=== PATIENT | female | born 1960 | race American Indian/Alaskan Native ===

== ENCOUNTER → 2017-05-07 | Outpatient (CLI) | payer BC, OTHER ==
[~2017-05-07] MED LIST: ASPI-624 PO; LEVO75TA6 PO; METO-272 PO; SULF1TAB23 PO
--- NOTE | 2017-05-10 19:37 | Diagnostic Imaging Report ---
EXAMINATION: Digital Mammogram bilateral screening with tomosynthesis. INDICATION: Screening. COMPARISON: This study was compared to the prior exams of 05/22/2016, 05/17/2015, and 05/11/2014. At this time, there are no current complaints. The current study was also evaluated with a Computer Aided Detection (CAD) system. FINDINGS: The fibroglandular tissue in both breasts is heterogeneously dense. This does limit the sensitivity of this exam. Overall, there does not appear to have been any significant change when compared to the prior study. No primary or secondary sign of malignancy is noted. 3D tomographic images fail to show any sign of malignancy. IMPRESSION: There is no radiographic evidence for malignancy. ACR BI-RADS Category 1: Negative. Result letter will be mailed to the patient. Note: At least 10% of breast cancer is not imaged by mammography. Dictated by: Dictated on workstation # [id number]
== END ==
LOC: RAD 13:26
PROVIDERS: ATTEND Internal Medicine
DX: Z12.31 Encounter for screening mammogram for malignant neoplasm of breast (principal)
CPT/HCPCS: 77067

== ENCOUNTER 2018-05-10 12:59 | Day surgery (SDC) | payer BC ==
[~2018-05-10] VITALS: Ht 167.6 cm; Wt 91.3 kg
[~2018-05-10 12:59] MED LIST changes: -ACHD5005 PO; -AMLO5TAB2 PO
--- OUTSIDE RECORDS SUMMARY | 2018-05-10 13:01 | XMS REPORT | Clinical Summary ---
Author Author User, K[employer] Organization Crystal Henson DO, FACP Address Unknown Phone Allergies, Adverse Reactions, Alerts Allergy Name Reaction Description Start Date Severity Status Provider Allergies Unknown Conditions or Problems Problem Name Problem Code Onset Date Status Entry Date Provider Comment Standard Description Annotate WELL WOMAN V70.0 Active Crystal Henson Routine general medical examination at a [facility] care facility HYPERTENSION 401.1 Active Crystal Henson Benign essential hypertension HYPOTHYROIDISM, PRIMARY 244.9 Active Crystal Henson Unspecified hypothyroidism WEIGHT GAIN, ABNORMAL 783.1 Active Crystal Henson Abnormal weight gain Medication List Medication Instructions Start Date Stop Date Generic Name NDC Status Provider Patient Instruction BETAMETHASONE DIPROPIONATE 0.05 % CREA as directed BID BETAMETHASONE DIPROPIONATE 47859709364 Active Delores Conley METOPROLOL SUCCINATE ER 25 MG [id number] 1 PO daily METOPROLOL SUCCINATE 61992563511 Active Crystal Henson ASPIRIN 81 MG TAB 1 PO daily ASPIRIN 87853682177 Active Crystal Henson LEVOTHYROXINE SODIUM 75 MCG TABS 1 PO daily LEVOTHYROXINE SODIUM 55373093543 Active Crystal Henson Vital Signs Date Name Value Unit Range Description blood pressure, diastolic - 8462-4 90 mm[Hg] BP ivey blood pressure, systolic - 8480-6 166 mm[Hg] BP sys height E&M - 8302-2 66 [in_us] Bdy height pulse rate E&M - 8867-4 72 /min Heart rate respiratory rate E&M - 9279-1 14 /min Resp rate temperature E&M 98.6 [degF] Body temperature weight E& - 3141-9 210 [lb_av] Weight Measured Diagnostic Results Date Name Value Unit Range Description Office Visit: First Visit - Chemistry Estimated Glomerular Filtration Rate (calc) 117 mL/min/1.73m2 glucose, plasma fasting 109 mg/dL albumin, serum 4.6 g/dL alkaline phosphatase, serum 53 U/L urea nitrogen, blood 13 mg/dL calcium, serum 9.3 mg/dL chloride, serum 103 mmol/L cholesterol, serum 235 mg/dL cholesterol/HDL ratio, serum, percent 4.4 anion gap, serum 11 sodium, serum 136 mmol/L triglyceride, serum, fasting 169 mg/dL bilirubin, serum, total 0.5 mg/dL alanine aminotransferase (SGPT), serum 22 U/L aspartate aminotransferase (SGOT), serum 14 U/L protein, total, serum 7.2 g/dL potassium, serum 4.6 mmol/L LDL cholesterol, serum 147 mg/dL thyroid stimulating hormone, serum 1.54 u[iU]/mL hemoglobin A1C, blood, as % of total hemoglobin 5.5 % HDL cholesterol, serum 54.0 mg/dL thyroxine, serum, free 0.91 ng/dL ferritin, serum 54.8 ng/mL creatinine, serum 0.6 mg/dL carbon dioxide, venous blood 27.0 mmol/L Office Visit: First Visit - Hematology red blood cell distribution width 14.2 % hemoglobin, blood 15.0 g/dL platelet count 348 10*3/mm3 erythrocyte (RBC) count 4.84 10*6/mm3 leukocyte count, blood 6.6 10*3/mm3 mean corpuscular volume, RBC 100 fL hematocrit, blood 49 % Procedures Code Procedure Name Date Entry Date Standard Description CPT-43778 Fermin Hastings, ([id number]) 16:29:41 ART CRITIC
--- OUTSIDE RECORDS SUMMARY | 2018-05-10 13:01 | XMS REPORT | Clinical Summary ---
Author Author User, Sravnikupi Organization Crystal Henson DO, CORNELP Address Unknown Phone Allergies, Adverse Reactions, Alerts Allergy Name Reaction Description Start Date Severity Status Provider Allergies Unknown Conditions or Problems Problem Name Problem Code Onset Date Status Entry Date Provider Comment Standard Description Annotate WELL WOMAN V70.0 Active Crystal Henson Routine general medical examination at a [facility] care facility HYPERTENSION 401.1 Active Crystal Henson Benign essential hypertension HYPOTHYROIDISM, PRIMARY 244.9 Active Crystal Henson Unspecified hypothyroidism WEIGHT GAIN, ABNORMAL 783.1 Active Crystal Henson Abnormal weight gain BREAST MASS, RIGHT 611.72 Active Crystal Henson Lump or mass in breast Medication List Medication Instructions Start Date Stop Date Generic Name NDC Status Provider Patient Instruction BETAMETHASONE DIPROPIONATE 0.05 % CREA as directed BID BETAMETHASONE DIPROPIONATE 73992627458 Active Delores Conley METOPROLOL SUCCINATE ER 25 MG [id number] 1 PO daily METOPROLOL SUCCINATE 17658814207 Active Olga Lee ASPIRIN 81 MG TAB 1 PO daily ASPIRIN 04444242261 Active Olga Lee LEVOTHYROXINE SODIUM 75 MCG TABS 1 PO daily LEVOTHYROXINE SODIUM 55713051042 Active Olga Lee Vital Signs Date Name Value Unit Range Description blood pressure, diastolic - 8462-4 70 mm[Hg] BP ivey blood pressure, systolic - 8480-6 155 mm[Hg] BP sys pulse rate E&M - 8867-4 75 /min Heart rate respiratory rate E&M - 9279-1 14 /min Resp rate weight E&M - 3141-9 209 [lb_av] Weight Measured blood pressure, diastolic - 8462-4 90 mm[Hg] BP ivey blood pressure, systolic - 8480-6 166 mm[Hg] BP sys height E&M - 8302-2 66 [in_us] Bdy height pulse rate E&M - 8867-4 72 /min Heart rate respiratory rate E&M - 9279-1 14 /min Resp rate temperature E&M 98.6 [degF] Body temperature weight E&M - 3141-9 210 [lb_av] Weight Measured Diagnostic Results Date Name Value Unit Range Description Office Visit: First Visit - Chemistry chloride, serum 103 mmol/L sodium, serum 136 mmol/L cholesterol, serum 235 mg/dL carbon dioxide, venous blood 27.0 mmol/L creatinine, serum 0.6 mg/dL Estimated Glomerular Filtration Rate (calc) 117 mL/min/1.73m2 ferritin, serum 54.8 ng/mL glucose, plasma fasting 109 mg/dL cholesterol/HDL ratio, serum, percent 4.4 alanine aminotransferase (SGPT), serum 22 U/L aspartate aminotransferase (SGOT), serum 14 U/L protein, total, serum 7.2 g/dL potassium, serum 4.6 mmol/L thyroid stimulating hormone, serum 1.54 u[iU]/mL triglyceride, serum, fasting 169 mg/dL HDL cholesterol, serum 54.0 mg/dL hemoglobin A1C, blood, as % of total hemoglobin 5.5 % LDL cholesterol, serum 147 mg/dL albumin, serum 4.6 g/dL alkaline phosphatase, serum 53 U/L anion gap, serum 11 bilirubin, serum, total 0.5 mg/dL urea nitrogen, blood 13 mg/dL calcium, serum 9.3 mg/dL thyroxine, serum, free 0.91 ng/dL Office Visit: First Visit - Hematology mean corpuscular volume, RBC 100 fL red blood cell distribution width 14.2 % erythrocyte (RBC) count 4.84 10*6/mm3 leukocyte count, blood 6.6 10*3/mm3 hemoglobin, blood 15.0 g/dL platelet count 348 10*3/mm3 hematocrit, blood 49 % Encounters Code Encounter Date Provider Facility CPT-83668 Ofc Vst, Est Level III 16:10:15 CDT Crystal Henson DO, FACP Procedures Code Procedure Name Date Entry Date Standard Description CPT-51633 Preventive, New, (40-64) 16:29:41 RESERVATIONS MANAGER
--- OUTSIDE RECORDS SUMMARY | 2018-05-10 13:02 | XMS REPORT | Continuity of Care Document ---
Author Author [facility] Address Unknown Phone Unavailable Allergies Active Description Code Type Severity Reaction Onset Reported/Identified Relationship to Patient Clinical Status Yes No Known Drug Allergies [id number] Drug Allergy Unknown N/A 12/14/2013 Medications There is no data. Problems Date Dx Coded Attending Type Code Diagnosis Diagnosed By 01/03/2013 388.30 TINNITUS UNSPECIFIED 01/03/2013 461.9 SINUSITIS ACUTE 01/03/2013 388.30 TINNITUS UNSPECIFIED 01/03/2013 461.9 SINUSITIS ACUTE 01/03/2013 EL HOSKINS DO 388.30 TINNITUS UNSPECIFIED 01/03/2013 EL HOSKINS DO 461.9 SINUSITIS ACUTE 01/16/2013 380.4 CERUMEN IMPACTION 01/16/2013 EL HOSKINS DO 380.4 CERUMEN IMPACTION 12/14/2013 ABIODUN JAIMES, JANIA Mcguire Ot 599.0 URIN TRACT INFECTION NOS 12/14/2013 JANIA RASCON MD Ot 780.4 DIZZINESS AND GIDDINESS 05/01/2015 DAVIDE NEVAREZ PATIENT CARRIER Ot V76.12 05/24/2015 DAVIDE NEVAREZ PATIENT CARRIER Ot V76.12 05/24/2015 VAISHNAVI SMITH DOI Ot V76.12 06/18/2015 LUIS KIRAN YOANNA Ot V76.12 05/22/2016 DAVIDE NEVAREZ PATIENT CARRIER Ot V76.12 OTH SCREEN MAMMO-MALIGN NEOPLASM OF SUKUMAR 05/22/2016 YOANNA SMITH DO Ot V76.12 OTH SCREEN MAMMO-MALIGN NEOPLASM OF SUKUMAR 05/25/2016 YOANNA SMITH DO Ot Z12.31 ENCNTR SCREEN MAMMOGRAM FOR MALIGNANT NE 05/25/2016 YOANNA SMITH DO Ot Z12.31 ENCNTR SCREEN MAMMOGRAM FOR MALIGNANT NE 06/25/2016 YOANNA SMITH DO Ot Z12.31 ENCNTR SCREEN MAMMOGRAM FOR MALIGNANT NE 05/05/2017 DAVIDE NEVAREZ Ot V76.12 OTH SCREEN MAMMO-MALIGN NEOPLASM OF SUKUMAR 05/05/2017 LUIS KIRANYOANNA Ot V76.12 OTH SCREEN MAMMO-MALIGN NEOPLASM OF SUKUMAR 05/05/2017 SMITH DO YOANNA Ot Z12.31 ENCNTR SCREEN MAMMOGRAM FOR MALIGNANT NE 05/24/2017 SMITH DO YOANNA Ot Z12.31 ENCNTR SCREEN MAMMOGRAM FOR MALIGNANT NE Procedures There is no data. Results There is no data. Encounters ACCT No. Visit Date/Time Discharge Status Pt. Type Provider Facility Loc./Unit Complaint [id number] 01/17/2014 08:33:00 01/17/2014 23:59:59 CLS Outpatient EL HOSKINS DO [id number] 01/03/2013 10:24:00 01/03/2013 23:59:59 CLS Outpatient [id number] 01/16/2013 13:12:00 Document Registration [id number] 05/07/2017 13:26:00 05/07/2017 23:59:59 CLS Outpatient SMITH DO YOANNA [facility] RAD SCREENING [id number] 05/22/2016 13:09:00 05/22/2016 23:59:59 CLS Outpatient SMITH DO, YOANNA [facility] RAD SCREENING [id number] 05/17/2015 10:56:00 05/17/2015 23:59:59 CLS Outpatient SMITH DO YOANNA [facility] RAD SCREENING [id number] 05/11/2014 11:17:00 05/11/2014 23:59:59 CLS Outpatient DAVIDE NEVAREZ [facility] RAD SCREENING [id number] 12/14/2013 09:37:00 12/14/2013 12:00:00 DIS Emergency ABIODUN JAIMES, JANIA Mcguire [facility] ER HIGH BLOOD PRESSURE DIZZINESS [id number] 05/01/2015 09:17:00 Document Registration
--- OUTSIDE RECORDS SUMMARY | 2018-05-10 13:02 | XMS REPORT | Clinical Summary ---
Author Author User, Wannado[employer]ana Organization Crystal Henson DO, FACP Address Unknown Phone Allergies, Adverse Reactions, Alerts Allergy Name Reaction Description Start Date Severity Status Provider Allergies Unknown Conditions or Problems Problem Name Problem Code Onset Date Status Entry Date Provider Comment Standard Description Annotate WELL WOMAN V70.0 Resolved Crystal Henson Routine general medical examination at a [facility] care facility HYPERTENSION 401.1 Active Crystal Henson Benign essential hypertension HYPOTHYROIDISM, PRIMARY 244.9 Active Crystal Henson Unspecified hypothyroidism WEIGHT GAIN, ABNORMAL 783.1 Active Crystal Henson Abnormal weight gain BREAST MASS, RIGHT 611.72 Resolved Crystal Henson Lump or mass in breast Medication List Medication Instructions Start Date Stop Date Generic Name NDC Status Provider Patient Instruction BETAMETHASONE DIPROPIONATE 0.05 % CREA as directed BID BETAMETHASONE DIPROPIONATE 93836299620 Active Crystal Henson METOPROLOL SUCCINATE ER 25 MG [id number] 1 PO daily METOPROLOL SUCCINATE 58505659168 Active Crystal Henson ASPIRIN 81 MG TAB 1 PO daily ASPIRIN 61398327934 Active Olga Lee LEVOTHYROXINE SODIUM 75 MCG TABS 1 PO daily LEVOTHYROXINE SODIUM 72980202430 Active Crystal Henson Vital Signs Date Name Value Unit Range Description blood pressure, diastolic - 8462-4 80 mm[Hg] BP ivey blood pressure, systolic - 8480-6 132 mm[Hg] BP sys pulse rate E&M - 8867-4 82 /min Heart rate respiratory rate E&M - 9279-1 14 /min Resp rate temperature E&M 98.6 [degF] Body temperature weight E&M - 3141-9 213 [lb_av] Weight Measured blood pressure, diastolic - 8462-4 70 mm[Hg] [...] Results Date Name Value Unit Range Description Clinical Lists Update: CMP,CHOL,TRIG,TSH,FREE T4 - Chemistry triglyceride, serum, fasting 249 mg/dL albumin, serum 4.4 g/dL anion gap, serum 9 glucose, plasma fasting 116 mg/dL Estimated Glomerular Filtration Rate (calc) 111 mL/min/1.73m2 bilirubin, serum, total 0.5 mg/dL alanine aminotransferase (SGPT), serum 21 U/L aspartate aminotransferase (SGOT), serum 14 U/L protein, total, serum 7.2 g/dL potassium, serum 4.5 mmol/L thyroid stimulating hormone, serum 1.64 u[iU]/mL thyroxine, serum, free 0.84 ng/dL creatinine, serum 0.6 mg/dL carbon dioxide, venous blood 28.0 mmol/L cholesterol, serum 225 mg/dL chloride, serum 103 mmol/L calcium, serum 9.3 mg/dL urea nitrogen, blood 8 mg/dL alkaline phosphatase, serum 57 U/L sodium, serum 135 mmol/L Office Visit: First Visit - Chemistry sodium, serum 136 mmol/L anion gap, serum 11 cholesterol/HDL ratio, serum, percent 4.4 glucose, plasma fasting 109 mg/dL Estimated Glomerular Filtration Rate (calc) 117 mL/min/1.73m2 triglyceride, serum, fasting 169 mg/dL albumin, serum 4.6 g/dL alkaline phosphatase, serum 53 U/L urea nitrogen, blood 13 mg/dL calcium, serum 9.3 mg/dL chloride, serum 103 mmol/L cholesterol, serum 235 mg/dL bilirubin, serum, total 0.5 mg/dL alanine [...] mmol/L Office Visit: First Visit - Hematology platelet count 348 10*3/mm3 erythrocyte (RBC) count 4.84 10*6/mm3 leukocyte count, blood 6.6 10*3/mm3 mean corpuscular volume, RBC 100 fL red blood cell distribution width 14.2 % hemoglobin, blood 15.0 g/dL hematocrit, blood 49 % Encounters Code Encounter Date Provider Facility CPT-90860 Ofc Vst, Est Level III 16:58:06 CDT Crystal Henson DO, FACJanuary CPT-83484 Ofc Vst, Est Level III 16:10:15 CDT Crystal Henson DO, FACP Procedures Code Procedure Name Date Entry Date Standard Description CPT-84232 Fermin Hastinsg, (40-64) 16:29:41 DISTRIBUTION CENTER SUPERVISOR
--- OUTSIDE RECORDS SUMMARY | 2018-05-10 13:02 | XMS REPORT | Clinical Summary ---
Author Author User, [employer] Organization Crystal Henson DO, FACP Address Unknown Phone Allergies, Adverse Reactions, Alerts Allergy Name Reaction Description Start Date Severity Status Provider Allergies Unknown Conditions or Problems Problem Name Problem Code Onset Date Status Entry Date Provider Comment Standard Description Annotate WELL WOMAN V70.0 Active Crystal Henson Routine general medical examination at a [facility] care facility HYPERTENSION 401.1 Active Crystal Henson Benign essential hypertension HYPOTHYROIDISM, PRIMARY 244.9 Active Crystal Henson Unspecified hypothyroidism WEIGHT GAIN, ABNORMAL 783.1 Active Crystal Henson Abnormal weight gain Medication List Medication Instructions Start Date Stop Date Generic Name NDC Status Provider Patient Instruction BETAMETHASONE DIPROPIONATE 0.05 % CREA as directed BID BETAMETHASONE DIPROPIONATE 30149789831 Active Delores Conley METOPROLOL SUCCINATE ER 25 MG [id number] 1 PO daily METOPROLOL SUCCINATE 11697428847 Active Crystal Henson ASPIRIN 81 MG TAB 1 PO daily ASPIRIN 77518895595 Active Crystal Henson LEVOTHYROXINE SODIUM 75 MCG TABS 1 PO daily LEVOTHYROXINE SODIUM 78641926063 Active Crystal Henson Vital Signs Date Name [...] Procedure Name Date Entry Date Standard Description CPT-61773 Fermin Hastings, (40-64) 16:29:41 SALON ASSISTANT
--- OUTSIDE RECORDS SUMMARY | 2018-05-10 13:02 | XMS REPORT | Clinical Summary ---
Author Author User, [employer] Organization Crystal Henson DO, CORNELP Address Unknown Phone Allergies, Adverse Reactions, Alerts Allergy Name Reaction Description Start Date Severity Status Provider Allergies Unknown Conditions or Problems Problem Name Problem Code Onset Date Status Entry Date Provider Comment Standard Description Annotate WELL WOMAN V70.0 Resolved Crystal Henson Routine general medical examination at a [facility] care facility HYPERTENSION 401.1 Active [...] % CREA as directed BID BETAMETHASONE DIPROPIONATE 13712348551 Active Crystal Henson METOPROLOL SUCCINATE ER 25 MG [id number] 1 PO daily METOPROLOL SUCCINATE 46709246352 Active Crystal Henson ASPIRIN 81 MG TAB 1 PO daily ASPIRIN 58232000147 Active Olga Lee LEVOTHYROXINE SODIUM 75 MCG TABS 1 PO daily LEVOTHYROXINE SODIUM 17206015853 Active Crystal Henson Vital Signs Date Name [...] % Encounters Code Encounter Date Provider Facility CPT-48845 Ofc Vst, Est Level III 16:58:06 CDT Crystal Henson DO, FACJanuary CPT-80519 Ofc Vst, Est Level III 16:10:15 CDT Crystal Henson DO, FACP Procedures Code Procedure Name Date Entry Date Standard Description CPT-39899 Fermin Hastings, (40-64) 16:29:41 FLORIST'S DECORATOR
--- OUTSIDE RECORDS SUMMARY | 2018-05-10 13:02 | XMS REPORT | Clinical Summary ---
Author Author User, [employer] Organization Crystal Henson DO, FACP Address Unknown Phone Allergies, Adverse Reactions, Alerts Allergy Name Reaction Description Start Date Severity Status Provider Allergies Unknown Conditions or Problems Problem Name Problem Code Onset Date Status Entry Date Provider Comment Standard Description Annotate WELL WOMAN V70.0 Active Crystal Henson Routine general medical examination at a [facility] care facility HYPERTENSION 401.1 Active Crystal Henson Benign essential hypertension HYPOTHYROIDISM, PRIMARY 244.9 Active Crystal Henson Unspecified hypothyroidism WEIGHT GAIN, ABNORMAL 783.1 Active Crystal Henson Abnormal weight gain Medication List Medication Instructions Start Date Stop Date Generic Name NDC Status Provider Patient Instruction BETAMETHASONE DIPROPIONATE 0.05 % CREA as directed BID BETAMETHASONE DIPROPIONATE 53015556026 Active Delores Conley METOPROLOL SUCCINATE ER 25 MG [id number] 1 PO daily METOPROLOL SUCCINATE 07216284125 Active Crystal Henson ASPIRIN 81 MG TAB 1 PO daily ASPIRIN 80167367364 Active Crystal Henson LEVOTHYROXINE SODIUM 75 MCG TABS 1 PO daily LEVOTHYROXINE SODIUM 85236373541 Active Crystal Henson Vital Signs Date Name [...] Procedure Name Date Entry Date Standard Description CPT-15901 Fermin Hastings, (40-64) 16:29:41 BENEFITS PROCESSOR
[2018-05-10 13:25] VITALS: BP 141/79
[2018-05-10] MEDS ORDERED: ceFAZolin 2 GM IV Premixed 50 ML ONE (13:26)
[2018-05-10] MEDS ORDERED: metroNIDAZOLE 500MG/100ML IVPB 100 ML ONE (13:30)
[2018-05-10] MEDS ORDERED: LACTATED RINGERS 1,000 ML IV PRN (13:31)
[2018-05-10] MEDS ORDERED: ONDANSETRON 4 MG/2 ML (SDV) Z0FRAN ONE ×3 (13:31→14:05)
[2018-05-10] MEDS ORDERED: FAMOTIDINE 20MG/2ML IV (PEPCID) ONE (13:31)
[2018-05-10] MEDS ORDERED: ROCURONIUM 10 MG/ML 5 ML SYRINGE IV ONE ×2 (13:37→14:05)
[2018-05-10] MEDS ORDERED: LIDOCAINE 1% INJ 20 ML 20 ML VIAL ONE (13:37)
[2018-05-10] MEDS ORDERED: DEXAMETHASONE 10 MG/ML (DECADRON) 1 ML VIAL ONE ×2 (13:37→14:05)
[2018-05-10] MEDS ORDERED: proPOfol 200 MG/20 ML (DIPRIVAN) VIAL IV ONE ×2 (13:37→14:05)
[2018-05-10] MEDS ORDERED: BUPIVACAINE 0.5% 30 ML (SENSORCAINE) VIAL ONE (13:37)
[2018-05-10] MEDS ORDERED: LIDOCAINE PF 2% 5 ML (XYLOCAINE) VIAL ONE ×2 (13:37→14:05)
[2018-05-10] MEDS ORDERED: ONDANSETRON 4 MG/2 ML (SDV) Z0FRAN IV ONE (13:45)
[2018-05-10] MEDS ORDERED: FAMOTIDINE 20MG/2ML IV (PEPCID) IV ONE (13:45)
[2018-05-10] MEDS ORDERED: ceFAZolin 2 GM IV Premixed 50 ML IV ONE (13:45)
[2018-05-10] MEDS ORDERED: MIDAZOLAM 2 MG/2 ML (VERSED) VIAL IV ONE (13:45)
[2018-05-10] MEDS ORDERED: metroNIDAZOLE 500MG/100ML IVPB 100 ML IV ONE (13:45)
[2018-05-10] MEDS ORDERED: MIDAZOLAM 2 MG/2 ML (VERSED) VIAL ONE (13:46)
[2018-05-10] MEDS ORDERED: fentaNYL INJECTION 100 MCG/2 ML AMP ONE (13:46)
[2018-05-10] MEDS: LACTATED RINGERS 1,000 ML IV PRN ×2 (13:49→14:09)
[2018-05-10] MEDS ORDERED: AMLO5TAB2 PO (13:53)
[2018-05-10] MEDS ORDERED: SEVOFLURANE (ULTANE) 15 ML INHAL SOLN ONE ×5 (14:05→15:01)
[2018-05-10] MEDS ORDERED: morphine INJ 10 MG/ML 1ML (SYR OR VIAL) ONE ×2 (14:48→15:14)
[2018-05-10] MEDS ORDERED: GLYCOPYRROLATE 0.2 MG/ML (ROBINUL) 2 ML VIAL ONE (15:01)
[2018-05-10] MEDS ORDERED: NEOSTIGMINE 1 MG/ML 5 ML SYRINGE ONE (15:01)
[2018-05-10] MEDS ORDERED: KETOROLAC 30 MG/ML VIAL ONE (15:14)
--- NOTE | 2018-05-10 15:15 | Progress Note-Post Operative ---
Post-Operative Progess Note Surgeon (s)/Director Life Insurance (s) Surgeon AUREA BLAKELY DO Director Life Insurance: na Pre-Operative Diagnosis ACUTE APPENDICITIS Post-Operative Diagnosis same Procedure & Operative Findings Date of Procedure 05/10/18 Procedure Performed/Findings lap appy Anesthesia Type gen Estimated Blood Loss Estimated blood loss (mL): min Specimens/Packing Specimens Removed appendix AUREA BLAKELY DO May 10, 2018 15:15
[2018-05-10] MEDS ORDERED: ACHD5005 PO ×2 (15:21)
--- NOTE | 2018-05-10 15:23 | Discharge Inst-Simple/Standard ---
Discharge Inst-Standard Discharge Medications New, Converted or Re-Newed RX: RX on Chart Patient Instructions/Follow Up Plan of Care/Instructions/FU: 2 weeks Simpson Activity as Tolerated: No Discharge Diet: Regular Diet Other Inst to Patient Follow up Appt: Make appointment for 2 weeks. Instructions: No lifting greater than 10 pounds. No strenuous activity. May shower in 24 hours, no tub bath or soaking. Use incentive spirometer at home as directed. No Smoking Skin/Wound Care: You have special glue over incisions it will fall off on its own. Symptoms to Report: Appetite Changes, Extremity Discoloration, Numbness/Tingling, Swelling Increased , Bleeding Excessive, Eyesight Changes, Pain Increased, Urine Color Change, Constipation(Persistent), Fever over 101 degree F, Pain/Pressure in chest, Urinating Difficulty, Cough Up/Vomit Blood, Heart Beat Irreg/Pounding, Pain/ Pressure in jaw, Vaginal Bleeding Increase, Cramps in feet or legs, Lightheadedness, Pain/Pressure in shoulder, Diarrhea(Persistent), Memory Changes Suddenly, Questions/Concerns, Weight gain consecutive days, Dizziness/ Fainting, Nausea/Vomiting, Shortness of Breath, Weight gain over 2 pounds If questions or concerns contact your physician Or seek help at emergency department. AUREA SIMPSON DO May 10, 2018 15:23
[2018-05-10] MEDS ORDERED: morphine INJ 10 MG/ML 1ML (SYR OR VIAL) IV PRN (15:30)
[2018-05-10] MEDS ORDERED: HYDROmorphone 1 MG/ML (DILAUDID) 1 ML SYRINGE IV PRN (15:45)
[2018-05-10] MEDS ORDERED: ONDANSETRON 4 MG/2 ML (SDV) Z0FRAN IVP PRN (15:45)
[2018-05-10] MEDS ORDERED: morphine INJ 10 MG/ML 1ML (SYR OR VIAL) IVP PRN (15:45)
[2018-05-10 17:11] VITALS: BP 139/74
[2018-05-10] MEDS ORDERED: morphine INJ 4 MG/ML 1 ML (VIAL/SYRINGE) IV PRN (17:45)
[2018-05-10] MEDS: NS IV 1000 ML 1,000 ML IV SCH (17:50)
[2018-05-10 19:28] VITALS: BP 144/67
[2018-05-10] MEDS: ceFAZolin 2 GM/50 ML PRE-MIXED IVPB IV SCH (21:16)
[2018-05-10] MEDS: HYDROcodone/APAP 5 MG/325 MG (LORTAB) TAB PO PRN (21:17)
[2018-05-10] MEDS: metroNIDAZOLE 500 MG/100 ML IVPB (PRE-MIX) IV SCH (21:53)
[2018-05-10] MEDS ORDERED: metroNIDAZOLE 500MG/100ML IVPB IV SCH (22:00)
[2018-05-10] MEDS ORDERED: ceFAZolin INJECTION 2,000 MG in NS (IVPB) 50 ML IV SCH (22:00)
[2018-05-11] VITALS: BP 125/61
--- NOTE | 2018-05-11 00:38 | OPERATIVE REPORT ---
DATE OF SERVICE: 05/10/2018 PREOPERATIVE DIAGNOSIS: Acute appendicitis. POSTOPERATIVE DIAGNOSIS: Acute appendicitis. PROCEDURE: Laparoscopic appendectomy. SURGEON: Aurea Simpson DO. ANESTHESIA: General. ESTIMATED BLOOD LOSS: Minimal. COMPLICATIONS: None. INDICATIONS: The patient is a 57-year-old female who presented to the urgent care with a right lower quadrant abdominal pain. This began last evening and continued. Pain, she rates at 8-9/10. She was sent for a CT scan, which a CT scan was reviewed and is consistent with acute appendicitis. She has had a white count of approximately 15,000. The patient was explained the risks and benefits of procedure and wished to proceed with the procedure. Consent was signed in the chart. PROCEDURE: The patient was taken to the operating suite. She was prepped and draped in sterile fashion. Surgical pause was performed. A 5 mm incision was made just above the umbilicus. A Judah was used to dissect down to the fascia, grasped and elevated. A Veress needle was inserted in the abdomen and pneumoperitoneum was achieved. Under direct visualization of the laparoscope, a 5 mm trocar was placed in the suprapubic region and a 12 mm trocar was placed in the left lower quadrant. The appendix was visualized and was adherent to the abdominal wall was thickened and inflamed. This was dissected bluntly off of the abdominal wall, grasped and elevated. A window was created at the base of the appendix using a [place]. An Endo-NEFTALI 2.5 staple load was then fired across the base of the appendix. There are some slight adhesions tying the base of the appendix laterally more the mesoappendix. Therefore, the LigaSure was then used to dissect the mesoappendix away from the appendix. Once removed, it was placed in an Endobag and removed through the 12 mm trocar site. The abdomen was irrigated with copious amounts of irrigation. Hemostasis had been achieved. The staple line was intact. Using an Endoclose, the 12 mm fascial defect was closed using 0 Vicryl. The abdomen was then desufflated, the trocars were removed. A total of 20 mL of 0.5% Marcaine, 1% lidocaine in 50:50 ratio was used to anesthetize the area. Skin was then closed using 4-0 Monocryl in a subcuticular fashion. The abdomen was then washed and dried. Skin Affix was placed over incisions. The patient tolerated the procedure well without any complications. She was taken to recovery room in stable condition. The patient will be admitted postoperatively. Job ID: [id number] DocumentID: [id number] Dictated Date: 05/10/2018 16:14:41 Core Shaper Top Date: 05/11/2018 00:37:55 Dictated By: AUREA SIMPSON DO
[2018-05-11] MEDS: NS IV 1000 ML 1,000 ML IV SCH ×2 (03:25→08:16)
[2018-05-11 04:00] VITALS: BP 126/68
[2018-05-11] MEDS: ceFAZolin 2 GM/50 ML PRE-MIXED IVPB IV SCH (05:38)
[2018-05-11] MEDS: HYDROcodone/APAP 5 MG/325 MG (LORTAB) TAB PO PRN ×2 (05:39→09:47)
[2018-05-11] MEDS: metroNIDAZOLE 500 MG/100 ML IVPB (PRE-MIX) IV SCH (06:19)
[2018-05-11 08:16] VITALS: BP 122/60
[2018-05-11 10:46] VITALS: BP 122/60
--- NOTE | 2018-05-11 11:08 | Anesthesia-General Post-Op ---
General Patient Condition Mental Status/LOC: Same as Preop Cardiovascular: Satisfactory Nausea/Vomiting: Absent Respiratory: Satisfactory Pain: Controlled Complications: Absent Post Op Complications Complications None Follow Up Care/Instructions Patient Instructions None needed. Anesthesia/Patient Condition Patient Condition Patient is doing well, no complaints, stable vital signs, no apparent adverse anesthesia problems. No complications reported per nursing. NEMO DYSON CRNA May 11, 2018 11:08
--- NOTE | 2018-05-11 20:39 | Progress Note ---
Subjective Date Seen by Provider: May 11, 2018 Time Seen by Provider: 08:55 Subjective/Events-last exam Patient doing well. Pain control. Tolerating diet. Wanting to go home. Denies any nausea vomiting fever sweats chills shortness of breath or chest pain. Objective Exam Vital Signs Date Time Temp Pulse Resp B/P (MAP) Pulse Ox O2 Delivery O2 Flow Rate FiO2 05/11/18 10:46 72 16 122/60 93 Room Air 05/11/18 09:00 Room Air 05/11/18 08:16 98.4 72 16 122/60 (80) 93 Room Air 05/11/18 04:00 99.3 70 20 126/68 (87) 93 Room Air 05/11/18 00:00 99.1 84 16 125/61 (82) 97 Room Air 05/10/18 21:00 Room Air I & O 05/11/18 07:00 Intake Total 4490 ml Output Total 2100 ml Balance 2390 ml Capillary Refill : General Appearance: No Apparent Distress Neck: Supple Respiratory: No Accessory Muscle Use, No Respiratory Distress Cardiovascular: Regular Rate, Rhythm Gastrointestinal: soft, tenderness (Incisional) Extremity: Non Tender Skin: Normal Color, Warm/Dry Lymphatic: No Adenopathy Results Lab Microbiology 05/10/18 MRSA Screen - Final, Complete MRSA not isolated Assessment/Plan Assessment/Plan Assessment/Plan Status post laparoscopic appendectomy. Patient doing well. We'll discharge home. Any issues be seen that time otherwise follow up at follow-up appointment. Patient agrees with plan. Final Diagnosis Acute appendicitis, right lower quadrant abdominal pain, status post laparoscopic appendectomy Clinical Quality Measures DVT/VTE Risk/Contraindication: Risk Factor Score Per Nursin RFS Level Per Nursing on Admit: 4+=Very High AUREA BLAKELY DO May 11, 2018 20:39
== END 2018-05-11 10:30 | disposition home or self-care (01) ==
LOC: SDC 12:59 → 4TH 17:00 → SDC 05-11 10:30
PROVIDERS: ATTEND Surgery
DX: K35.80 Unspecified acute appendicitis (principal); I10 Essential (primary) hypertension
CPT/HCPCS: 84703; 87081; 94664

== ENCOUNTER → 2018-05-10 | Outpatient (CLI) | payer BC ==
[~2018-05-10] MED LIST changes: +ACHD5005 PO; +AMLO5TAB2 PO
[2018-05-10 11:12] LABS: BASOPHILS % (AUTO) 0 % (0-10); EOSINOPHILS % (AUTO) 0 % (0-10); HEMATOCRIT 43 % (35-52); HEMOGLOBIN 14.8 G/DL (11.5-16.0); LYMPHOCYTES # (AUTO) 0.8 X 10^3 (1.0-4.0); LYMPHOCYTES % (AUTO) 5 % (12-44); MEAN CORPUSCULAR HEMOGLOBIN 31 PG (25-34); MEAN CORPUSCULAR HGB CONC 34 G/DL (32-36); MEAN CORPUSCULAR VOLUME 91 FL (80-99); MEAN PLATELET VOLUME 9.2 FL (7.4-10.4); MONOCYTES # (AUTO) 0.7 X 10^3 (0.0-1.0); MONOCYTES % (AUTO) 5 % (0-12); NEUTROPHILS # (AUTO) 14.1 X 10^3 (1.8-7.8); NEUTROPHILS % (AUTO) 90 % (42-75); PLATELET COUNT 304 10^3/uL (130-400); RED BLOOD COUNT 4.77 10^6/uL (4.35-5.85); RED CELL DISTRIBUTION WIDTH 13.5 % (10.0-14.5); WHITE BLOOD COUNT 15.6 10^3/uL (4.3-11.0)
[2018-05-10 11:34] LABS: ALANINE AMINOTRANSFERASE 19 U/L (0-55); ALBUMIN 4.6 GM/DL (3.2-4.5); ALKALINE PHOSPHATASE 71 U/L (40-136); BILIRUBIN,TOTAL 0.8 MG/DL (0.1-1.0); BUN/CREATININE RATIO 13; CARBON DIOXIDE 19 MMOL/L (21-32); CHLORIDE 106 MMOL/L (98-107); GFR ESTIMATED > 60; GLUCOSE 133 MG/DL (70-105); SODIUM 136 MMOL/L (135-145)
--- NOTE | 2018-05-10 12:35 | Diagnostic Imaging Report ---
PROCEDURE: CT abdomen and pelvis with contrast. TECHNIQUE: Multiple contiguous axial images were obtained through the abdomen and pelvis after administration of intravenous contrast. INDICATION: Right lower quadrant pain. No prior studies are available for comparison. The lung bases are clear. The liver demonstrates generalized low density consistent with hepatic steatosis. There is a region of hyperdensity in the right lobe which becomes more iso-intense to the liver on delayed images. This may represent a hemangioma. This area measures approximately 2.7 x 3.2 cm. No other liver lesions are seen. Gallbladder is unremarkable. The pancreas and spleen are unremarkable. No adrenal mass is detected. The kidneys are unremarkable. No hydronephrosis is detected. The appendix is dilated and fluid-filled. There is an appendicolith located in the appendix. There appears to be mild periappendiceal inflammation and features are consistent with acute appendicitis. No abscess formation is seen. No free air is detected. The bowel loops appear nonobstructive. No free fluid in the abdomen or pelvis is seen. Imaging through pelvis does show multiple calcified masses in the uterus consistent with fibroids. The bladder is unremarkable. IMPRESSION: 1. Features consistent with acute appendicitis. No abscess formation or bowel obstruction is seen. 2. Hepatic steatosis. 3. Hyperdensity right lobe of liver, suggestive of a cavernous hemangioma. Liver ultrasound or liver MRI on nonemergent basis could be performed for further characterization. 4. Fibroid uterus. Report was faxed/called to Vicki Yañez by dulce at 12:33 p.m. Dictated by: Dictated on workstation # [id number]
[2018-05-11 09:43] LABS: BAND NEUTROPHILS 1 %; BASOPHILS % (MANUAL) 1 %; EOSINOPHILS % (MANUAL) 0 %; LYMPHOCYTES % (MANUAL) 8 %; MONOCYTES % (MANUAL) 4 %; NEUTROPHILS % (MANUAL) 86 %; POIKILOCYTOSIS SLIGHT; STOMATOCYTES SLIGHT
== END ==
LOC: RAD 10:50
PROVIDERS: ATTEND Nurse Practitioner Family
DX: K76.0 Fatty (change of) liver, not elsewhere classified (principal); D25.9 Leiomyoma of uterus, unspecified
CPT/HCPCS: 36415; 74177; 80053; 85007; 85025; 85027

== ENCOUNTER → 2018-06-01 | Outpatient (CLI) | payer BC ==
[~2018-06-01] MED LIST changes: +ACHD5005 PO; +AMLO5TAB7 PO
--- NOTE | 2018-06-01 08:06 | Diagnostic Imaging Report ---
PROCEDURE: US Hepatic (Liver). TECHNIQUE: Multiple real-time grayscale images were obtained over the right upper quadrant in various projections. INDICATION: Fatty liver with area of relative hyperdensity right hepatic lobe indeterminate, ultrasound performed as further evaluation. Study correlated with CT 05/10/2018. FINDINGS: Right hepatic lobe lesion presents as a indistinctly marginated hypoechoic finding measuring 3.2 x 2.2 x 2.9 cm. Remaining liver parenchyma is mildly echodense consistent with fatty infiltration. The focal lesion itself does not have sonographic features suggestive of hemangioma and is not a typical location for focal fatty sparing. Would recommend Eovist protocol for abdominal MRI as its further evaluation. The gallbladder normal. There is no bile duct dilatation. Pancreas obscured by gas. The unobstructed right kidney appeared normal. There is no bile duct dilatation. No ascites. IMPRESSION: 1. Hypoechoic right hepatic lobe lesion does not have sonographic features suggestive of a benign hemangioma. Other etiology including primary or secondary malignancy could not be excluded. Further workup with hepatic protocol MRI recommended. 2. Fatty infiltration of the liver. No other significant finding. Dictated by: Dictated on workstation # [id number]
== END ==
LOC: RAD 07:09
PROVIDERS: ATTEND Surgery
DX: K76.0 Fatty (change of) liver, not elsewhere classified (principal)
CPT/HCPCS: 76705

== ENCOUNTER → 2018-06-03 | Outpatient (CLI) | payer BC ==
[2018-06-03 09:44] LABS: BUN/CREATININE RATIO 10; CREATININE SERUM 0.73 MG/DL (0.60-1.30); GFR ESTIMATED > 60
[2018-06-03] MEDS: GADOBUTROL 10 MMOL/10 ML (GADAVIST) VIAL IV ONE (11:47)
--- NOTE | 2018-06-03 13:04 | Diagnostic Imaging Report ---
PROCEDURE: MR imaging abdomen with and without contrast. TECHNIQUE: Multiplanar, multisequence MR imaging of the abdomen was performed with and without contrast. INDICATION: Right hepatic lobe nodule, indeterminate. COMPARISON: No previous for direct comparison, study however correlated with an ultrasound of 06/01/[address] of 05/10/2018. FINDINGS: In the right hepatic lobe on the preinjection T2 images, there is a well-defined somewhat bilobed configured T2 hyperintense nodule measuring 1.8 cm long axis with a thickness of only 9 mm. With the administration of IV contrast, this linear bilobed configured structure shows intense enhancement and there is increased enhancement of the adjacent hepatic parenchyma peripheral to this nodule measuring the same dimensions as abnormalities on both ultrasound as well as dynamic contrast-assisted abdominal CT was performed (roughly 2.5 cm diameter). This exerts no appreciable mass effect. It is barely perceptible on the delayed acquisitions where it shows serial reduction in intensity. The remaining liver parenchyma itself shows suggestion of mild steatosis. It is suggestive that this is likely incidental perfusion anomaly with regional hypervascularity accounting for focal fatty sparing. This would explain its relative hypoechogenicity on ultrasound. Atypical appearance of a hemangioma at ultrasound is an additional consideration. The appearance at all modalities favors a nonaggressive and benign process, however as it is not classic for any benign entity, I do feel its continued followup is appropriate. Repeat pre and post contrast-assisted abdominal MRI in six months is suggested. The liver was otherwise nonfocal. Spleen, adrenals, and pancreas are unremarkable. The kidneys are unobstructed and there is no abdominal mesenteric or retroperitoneal adenopathy. There is no ascites or fluid collection. No basilar pleural fluid. The marrow signal intensity is unremarkable. IMPRESSION: When the multiple imaging modalities are taken into account, findings favor atypical hemangioma versus incidental perfusion anomaly resulting in relative focal fatty sparing in the right hepatic lobe laterally. Neoplasm is felt doubtful, however cannot be definitively excluded as there are not classic benign features. A repeat abdominal MRI in six months is suggested. If it has shown to be stable at that exam, one-year followup from that exam would likely suffice. The study was otherwise unremarkable. Dictated by: Dictated on workstation # [id number]
== END ==
LOC: RAD 09:12
PROVIDERS: ATTEND Surgery
DX: K76.89 Other specified diseases of liver (principal)
CPT/HCPCS: 36415; 74183; 82565; 84520

== ENCOUNTER → 2018-07-01 | Outpatient (CLI) | payer BC ==
--- NOTE | 2018-07-01 09:31 | Diagnostic Imaging Report ---
INDICATION: Routine screening. COMPARISON is made with prior mammogram from 05/07/2017 and 05/22/2016. 2-D and 3-D bilateral screening mammography was performed with CAD. Both breasts are heterogeneously dense, limiting the sensitivity of mammography. The parenchymal pattern is stable. No mass or malignant-appearing microcalcifications are seen. The axillae are unremarkable. IMPRESSION: BI-RADS category 1 No mammographic features suspicious for malignancy are identified. ACR BI-RADS Category 1: Negative. Result letter will be mailed to the patient. Note: At least 10% of breast cancer is not imaged by mammography. Dictated by: Dictated on workstation # [id number]
== END ==
LOC: RAD 07:49
PROVIDERS: ATTEND Internal Medicine
DX: Z12.31 Encounter for screening mammogram for malignant neoplasm of breast (principal)
CPT/HCPCS: 77067

== ENCOUNTER 2019-06-14 13:29 | Outpatient (CLI) | payer BC ==
[~2019-06-14 13:29] MED LIST changes: -AMLO5TAB7 PO; +AMLO5TAB9 PO
== END 2019-06-14 14:05 | disposition home or self-care (01) ==
LOC: SLEEP 13:29
PROVIDERS: ATTEND Otolaryngology Otolaryngology/Facial Plastic Surgery
DX: G47.33 Obstructive sleep apnea (adult) (pediatric) (principal); G47.10 Hypersomnia, unspecified

== ENCOUNTER → 2019-10-02 | Outpatient (CLI) | payer BC ==
--- NOTE | 2019-10-02 11:03 | Diagnostic Imaging Report ---
INDICATION: Routine screening. COMPARISON: 07/01/2018 and 05/07/2017. TECHNIQUE: 2D and 3D bilateral screening mammography was performed with CAD. FINDINGS: Both breasts are heterogeneously dense, limiting the sensitivity of mammography. The parenchymal pattern is stable. No mass or malignant appearing microcalcifications are seen. The axillae are unremarkable. IMPRESSION: No mammographic features suspicious for malignancy are identified. ACR BI-RADS Category 1: Negative. Result letter will be mailed to the patient. Note: At least 10% of breast cancer is not imaged by mammography. Dictated by: Dictated on workstation # [id number]
== END ==
LOC: RAD 09:25
PROVIDERS: ATTEND Internal Medicine
DX: Z12.31 Encounter for screening mammogram for malignant neoplasm of breast (principal)
CPT/HCPCS: 77067

== ENCOUNTER 2020-03-09 14:06 | Emergency (ER) | payer BC ==
--- NOTE | 2020-03-09 14:11 | NUR ---
REGISTRATION REPORTS PT STATES SHE DOES NOT NEED STICHES AND WOULD JUST GO HOME.
--- OUTSIDE RECORDS SUMMARY | 2020-03-09 14:14 | XMS REPORT ---
Author Author [employer] balling head [employer] [facility] [employer] [facility] Address [address] [address] Care Team Providers Care Special Procedures Nurse Name Role Phone YOANNA SMITH Unavailable Migration, Doctor Unavailable Unavailable Migration, Doctor Unavailable Unavailable Migration, Doctor Unavailable Unavailable Migration, Doctor Unavailable Unavailable YOANNA SMITH PCP HOLDEN JAIMES, SALO Sin Unavailable Unavailable YOANNA SMITH DO S Unavailable Unavailable Unavailable Unavailable Allergies Normalized Allergy Reported Date of Reaction(s) Care Provider Facility Allergy Type classification allergen Allergy Onset DA (6 Unclassified No Known Drug 12-14-2013 - no information DAVIDE Not Available sources.) Allergies ROQUE ([id number]) Medications Medication Ingredient Drug Dose Dates Status Sig Sig Care Class(es) (Normalized) (Original) Provid er no acetaminoph Opioid 05-10-20 Complete take 1 Acetaminophe Aurea information en / Agonist 18 d tablet by n/Hydrocodon D (2 HYDROcodone mouth every e Bitart Blak[place] sources.) four hours (Hydrocodone (no as needed /Acetaminoph phone) en 5/325MG Tablet) 1 Tab Tab 1 Tab ORAL Every 4HRS as needed for 30 Tab 05/10/18 amLODIPine amLODIPine Dihydropyri 5 mg 05-10-20 Complete no Amlodipine (no 5 mg oral dine 18 d information Besylate 5 ph one) tablet (2 Calcium Mg Tablet, 5 sources.) Channel Mg Oral Ashwin Daily Discontinued no sulfamethox Dihydrofola 12-15-19 Complete no Sulfamet ashley Robertson information azole / te 14 - d information zole/Trimeth K (2 trimethopri Reductase 05-10-20 oprim [place] sources.) m Inhibitor 18 (Bactrim (no Antibacteri 400-80 Mg phone) al, Tablet) 1 Sulfonamide Tab Tablet, Antimicrobi 1 Tab Oral al Twice A Day 12/14/13 Discontinued 12-14-2013 Completed take Sulfamet Marcelo K - 400-80 hoxazole Peggy 05-10-2018 tablet /Trimeth (no s by oprim phone) mouth (Bactrim twice 400-80 daily Mg Tablet) 1 Tab Tablet, 1 Tab Oral Twice A Day 12/14/13 Disconti nued Problems Problem Normalized Date Last Normalized Normalized Provider Fa cility Classification Problem(s) Recorded Problem Problem Sta tus Duration NEGATED Dizziness and Episodic Active no name [facility] Via no giddiness [facility] information (4 Hospital - sources.) [place] ([id number]) Unclassified Encounter for Episodic Active DAVIDE Not A vailable (20 sources.) screening [facility] ([id number]) mammogram for malignant neoplasm of breast Translations: [ OTH SCREEN MAMMO-MALIGN NEOPLASM OF SUKUMAR] NEGATED Essential Chronic Active no name [facility] Via no (primary) [place] information (2 hypertension Hospital - sources.) [place] ([address]) NEGATED Fatty (change Chronic Active no name [facility] Via no of) liver, not [place] information (6 elsewhere Hospital - sources.) classified [place] (52718) Residual Hypersomnia, Chronic Active SALO HATCH [facility] V ia codes; unspecified , [facility] unclassified Hospital - (2 sources.) [place] ([address]60) NEGATED Leiomyoma of Episodic Active no name [facility] Via no uterus, [facility] information (3 unspecified Hospital - sources.) [place] (69523) Residual Obstructive Chronic Active SALO HATCH [facility] Vi a codes; sleep apnea , [facility] unclassified (adult) Hospital - (2 sources.) (pediatric) [place] ([address]153) Other liver Other Chronic Active no name no informat ion diseases (2 specified sources.) diseases of liver NEGATED Unspecified Episodic Active no name [facility] Via no acute [place] information (5 appendicitis Hospital - sources.) [place] (28995) NEGATED Urinary tract Episodic Active no name [facility] Via no infection, [place] information (4 site not Hospital - sources.) specified [place] (43817) Procedures Procedure Normalized Procedure Procedure Result Performer Facility Date 05-10-2018 Computed tomography of no information YOLIS SHAW [facility] abdomen and pelvis [place] (31476) with contrast 05-10-2018 Laparoscopic no information AUREA BLAKELY Via [facility] appendectomy [place] ([address]609) Immunizations Normalized Immunization Date Notes Care Provider Facili ty Immunization vaccine no information YOANNA SMITH [id number] [facility] Translations: [ [place] () vaccine] Results Test Name Value Interpretation Reference Range Date Time Fa cility (Normalized) (Normalized) (Medline Reference) venous blood hemoglobin measurement (mass/volume) on 2018-05-10 Hemoglobin (HGB) 14.8 g/dL (no code) 12.1 - 17.2 g/dL Via [facility] () serum or plasma urea nitrogen/creatin ine mass ratio on 2018-05-10 BUN/Creatinine 13 mg/mg (no code) 6 - 22 mg/mg Via [facility] ([address]004) serum or plasma urea nitrogen measurement (mass/volume) on 2018-05-10 Urea nitrogen 9 mg/dL (no code) 7 - 20 mg/dL Via [facility] () serum or plasma total bilirubin measurement (mass/volume) on 2018-05-10 Bilirubin 0.8 mg/dL (no code) 0.1 - 1.2 mg/dL Via [facility] (total) [facility] () serum or plasma sodium measurement (moles/volume) on 2018-05-10 Sodium 136 mmol/L (no code) 135 - 145 mmol/L Via [facility] () serum or plasma protein measurement (mass/volume) on 2018-05-10 Protein 8.0 g/dL (no code) 6.4 - 8.3 g/dL Via [facility] () serum or plasma potassium measurement (moles/volume) on 2018-05-10 Potassium 4.0 mmol/L (no code) 3.7 - 5.2 mmol/L Via [facility] (64168) serum or plasma glucose measurement (mass/volume) on 2018-05-10 Glucose 133 mg/dL (H) 60 - 125 mg/dL Via [facility] () serum or plasma creatinine measurement with calculation of estimated glomerular filtration rate on 2018-05-10 eGFR (non-black) no information (no code) Via [facility] () serum or plasma creatinine measurement (mass/volume) on 2018-05-10 Creatinine 0.70 mg/dL (no code) Via [facility] (36469) serum or plasma chloride measurement (moles/volume) on 2018-05-10 Chloride 106 mmol/L (no code) 95 - 106 mmol/L Via [facility] (72137) serum or plasma calcium measurement (mass/volume) on 2018-05-10 Calcium 10.0 mg/dL (no code) 8.5 - 10.2 mg/dL Via [facility] (56746) serum or plasma aspartate aminotransferase measurement (enzymatic activity/volume) on 2018-05-10 Aspartate 12 U/L (no code) 10 - 34 U/L Via [facility] aminotransferase [facility] (AST) [place] ([address]184) serum or plasma anion gap determination (moles/volume) on 2018-05-10 Anion gap 11 mmol/L (no code) 3 - 11 mmol/L Via [facility] (62684) serum or plasma alkaline phosphatase measurement (enzymatic activity/volume) on 2018-05-10 Alkaline 71 U/L (no code) 44 - 147 U/L Via [facility] phosphatase [facility] (ALP) [place] (99768) serum or plasma albumin measurement (mass/volume) on 2018-05-10 Albumin 4.6 g/dL (H) 3.4 - 5.4 g/dL Via [facility] (29386) serum or plasma alanine aminotransferase measurement (enzymatic activity/volume) on 2018-05-10 Alanine 19 U/L (no code) 4 - 40 U/L Via [facility] aminotransferase [facility] (ALT) [place] (59404) manual blood segmented neutrophils/100 leukocytes on 2018-05-10 Segmented 86 % (no code) 35 - 80 % Via [facility] Neutrophils/100 Hospital leukocytes [place] (52785) manual blood lymphocytes/100 leukocytes on 2018-05-10 Lymphocytes/100 8 % (no code) 20 - 40 % Via [facility] leukocytes [facility] (11715) manual blood basophils/100 leukocytes on 2018-05-10 Basophils/100 1 % (no code) 0.5 - 1 % Via [facility] (60610) carbon dioxide on 2018-05-10 CO2 19 mmol/L (L) 23 - 29 mmol/L Via [facility] (74543) blood stomatocytes detection by light microscopy on 2018-05-10 Blood SLIGHT (no code) [facility] detection by [place] light microscopy ([id number]) blood poikilocytosis detection by light microscopy on 2018-05-10 Poikilocytosis SLIGHT (no code) Via [facility] presence [facility] (65072) blood neutrophils automated count (number/volume) on 2018-05-10 Neutrophils 14.1 10*3/uL (H) 1.7 - 7 10*3/uL [facility] (83534) blood monocytes/100 leukocytes on 2018-05-10 Monocytes/100 4 % (no code) 2 - 8 % Via [facility] leukocytes [facility] (02750) Monocytes/100 5 % (no code) 2 - 8 % Via [facility] leukocytes [facility] (74107) blood monocytes automated count (number/volume) on 2018-05-10 Monocytes 0.7 10*3/uL (no code) 0.3 - 0.9 Via [facility] 10*3/uL [facility] (19069) blood lymphocytes automated count (number/volume) on 2018-05-10 Lymphocytes 0.8 10*3/uL (L) 0.9 - 2.9 Via [facility] 10*3/uL [facility] (78164) blood leukocytes automated count (number/volume) on 2018-05-10 WBC (Leukocytes) 15.6 10*3/uL (H) 3.5 - 10.5 Via [facility] sti 10*3/uL [facility] (56417) blood hematocrit (volume fraction) on 2018-05-10 Hematocrit (HCT) 43 % (no code) 36.1 - 50.3 % Via [facility] (04925) blood erythrocytes automated count (number/volume) on 2018-05-10 Erythrocytes 4.77 10*6/uL (no code) 4.2 - 6.1 Via [facility] (RBC) 10*6/uL [facility] (41105) blood blood smear finding identification by light microscopy on 2018-05-10 Blood blood RESULTS CALLED (no code) Via [facility] smear finding TO [facility] identification COLIN @ [address] [place] by light BY SMILEY (56706) microscopy DIANA blood band neutrophils/100 leukocytes on 2018-05-10 Neutrophils 1 % (no code) 0 - 3 % Via [place] band/100 Hospital leukocytes [place] (31070) automated erythrocyte mean corpuscular volume on 2018-05-10 MCV 91 fL (no code) 80 - 100 fL Via [facility] (83620) automated erythrocyte mean corpuscular hemoglobin concentration measurement (mass/volume) on 2018-05-10 MCHC 34 g/dL (no code) 32 - 36 g/dL Via [facility] (28078) automated erythrocyte mean corpuscular hemoglobin (mass per erythrocyte) on 2018-05-10 MCH 31 pg (no code) 27 - 31 pg Via [facility] (65393) automated erythrocyte distribution width ratio on 2018-05-10 RDW-CA 13.5 % (no code) 11.6 - 14.6 % Via [facility] (31964) automated eosinophil count on 2018-05-10 Eosinophils 0.0 10*3/uL (no code) 0.05 - 0.5 Via [facility] 10*3/uL [facility] (56420) automated blood platelet mean volume measurement on 2018-05-10 Platelet mean 9.2 fL (no code) 7.2 - 11.7 fL Via [facility] ([facility]) [facility] (69682) automated blood platelet count (count/volume) on 2018-05-10 Platelets 304 10*3/uL (no code) 150 - 450 Via [facility] 10*3/uL [facility] (69227) automated blood neutrophils/100 leukocytes on 2018-05-10 Neutrophils/100 90 % (H) 40 - 60 % Via [facility] (42982) automated blood lymphocytes/100 leukocytes on 2018-05-10 Lymphocytes/100 5 % (L) 20 - 40 % Via [facility] (22197) automated blood eosinophils/100 leukocytes on 2018-05-10 Eosinophils/100 0 % (no code) 1 - 4 % Via [facility] (23297) automated blood basophils/100 leukocytes on 2018-05-10 Basophils/100 0 % (no code) 0.5 - 1 % Via [facility] (69269) automated blood basophil count (count/volume) on 2018-05-10 Basophils 0.0 10*3/uL (no code) 0 - 0.3 10*3/uL Via [facility] (21959) Vital Signs The data below is from unstructured sources Vital Response Date/Time Temperature (Fahrenheit) 98.4 degree s F (97.6 - 99.5) 05/11/2018 10:46am Temperature (Calculated Celsius) 36. 95364 degrees C (36.4 - 37.5) 05/11/2018 8:16am Temperature Source Temporal 05/11/2018 10:46am Pulse Rate (adult) 72 bpm (60 - 90) 05/11/2018 10:46am Respiratory Rate 16 bpm (12 - 24) 05/11/2018 10:46am O2 Sat by Pulse Oximetry 93 % (88 - 100) 05/11/2018 10:46am Blood Pressure 122/60 mm Hg 05/11/2018 10:46am Blood Pressure Mean 80 mm Hg (65 - 110) 05/11/2018 8:16am Pain Numeric Pain Scale 5-Moderate Pain 05/11/2018 10:46am Height (Feet) 5 feet 1:25pm Height (Inches) 6.00 inches 05/10/2018 1:25pm Height (Calculated Centimeters) 167. 611933 cm 05/10/2018 1:25pm Weight (Pounds) 201 pounds 05/10/2018 1:25pm Weight (Ounces) 3.0 oz 0 05/10/2018 1:25pm Weight (Calculated Grams) 20916.12 gm 05/10/2018 1:25pm Weight (Calculated Kilograms) 91.257 116 kilograms 05/10/2018 1:25pm Calculated BMI 32.5 04/27 1:25pm No vital sign information available. Interventions No Information Plan of Treatment The data below is from unstructured sources Discharge Date 05/11/18 10:30am Instructions/Education Provided Appe ndectomy, Laparoscopic Surgery (DC) Prescriptions See Medication Section Discharge Date 06/14/19 2:05pm Prescriptions See Medication Section Discharge Date 06/14/19 2:05pm Prescriptions See Medication Section Goals No Information Social History No Information Functional Status The data below is from unstructured sources Query Response Date Gilbert rded Comprehension Ability Understands Co ncepts May 11, 2018 9:00am No functional status information available. Mental Status No Information Encounters Encounter Normalized Encounter Encounter Diagnosis Care Provi whit Organization Date Type 05-10-2018 Admission to day no information AUREA BLAKELY Work no organization name - surgery Phone: 05-11-2018 NEGATED Emergency department no information no name no organization name 12-14-2013 patient visit - 12-14-2013 07-01-2018 Patient encounter no information no name no or ganization name 06-03-2018 Patient encounter no information no name no or ganization name 06-01-2018 Patient encounter no information no name no or ganization name NEGATED Patient encounter no information no name no or ganization name 05-10-2018 - 05-11-2018 05-10-2018 Patient encounter no information YOLIS ISLAS no organization name 05-07-2017 Patient encounter no information no name no or ganization name 05-22-2016 Patient encounter no information no name no or ganization name 05-17-2015 Patient encounter no information no name no or ganization name 05-11-2014 Patient encounter no information no name no or ganization name 10-02-2019 Patient encounter no information YOANNA SMITH DO (no [facility] [place] procedure phone) [facility] (no phone) 06-14-2019 Patient encounter no information SALO HATCH Wo rk no organization name - procedure Phone: 06-14-2019 06-14-2019 Patient encounter no information no name no or ganization name - procedure 06-14-2019 Medical Equipment No Information Payers Normalized Payer Value [facility] [id number] ([id number]) Advance Directives Directive Response Recor ded Date/Time Advance Directives No 1:25pm Organ Donor No 05/10/18 1:25pm Resuscitation Status Full Code 05/10/18 1:25pm Directive Response Recor ded Date/Time Advance Directives No 1:25pm Organ Donor No 05/10/18 1:25pm Discharge Instructions No hospital discharge instruction information available.No hospital discharge instruction information available. Additional Source Comments This clinical document has been generated using [email or web address] software that has been certified by the Office of the National Coordinator for Health Information Technology (ONC 15.99.04.3023.Diam.31.00.0.561293) and the National Committee for [employer] (NCQA, as an eMeasure certified technology). FOR RECORDS PERTAINING TO PATIENTS WHO ARE OR HAVE BEEN ENROLLED IN A CHEMICAL D EPENDENCY/SUBSTANCE ABUSE PROGRAM, SOME INFORMATION MAY BE OMITTED. This clinica l summary was aggregated from multiple sources. Caution should be exercised in using it in the provision of clinical care. This summary normalizes information from multiple sources, and as a consequence, information in this document may ma terially change the coding, format and clinical context of patient data. In sy tion, data may be omitted in some cases. CLINICAL DECISIONS SHOULD BE BASED ON T HE PRIMARY CLINICAL RECORDS. [employer] provides no warranty or guara ntee of the accuracy or completeness of information in this document.The followi ng information is based on time limited clinical information UNRECOGNIZED CONTENT PROVIDED BELOW FOR UNRECOGNIZED SECTION REASON FOR VISIT [id number]
--- OUTSIDE RECORDS SUMMARY | 2020-03-09 14:15 | XMS REPORT ---
Author Author Sumi Borges Doctor Organization [facility] Address Unknown Phone Unavailable Care Team Providers Care Lead Tinner Name Role Phone Migration, Doctor Unavailable Unavailable PROBLEMS Type Condition ICD9-CM Code [id number] Code Onset Dates Condition S tatus SNOMED Code Problem Unspecified tinnitus 388.30 Active 31110402 Problem Impacted cerumen 380.4 Active 180 47941 Problem Acute sinusitis, unspecified 461.9 A ctive [id number] ALLERGIES No Information ENCOUNTERS Encounter Location Date Diagnosis [facility] [address] [id number] [address] [place] [phone] Dec, [facility] [address] [id number] [address] [place] [phone] Dec, [facility] [address] [id number] [address] [place] [phone] Dec, [facility] [address] [id number] [address] [place] [phone] Dec, [facility] [address] [id number] [address] [place] [phone] Dec, [facility] [address] [id number] [address] [place] [phone] Dec, [facility] [address] [id number] [address] [place] [phone] Dec, [facility] [address] [id number] [address] [place] [phone] Dec, [facility] [address] [id number] [address] [place] [phone] Dec, [facility] [address] [id number] [address] [place] [phone] Dec, [facility] [address] [id number] [address] [place] [phone] Dec, IMMUNIZATIONS No Known Immunizations SOCIAL HISTORY Never Assessed REASON FOR VISIT EMR-[facility] PLAN OF CARE VITAL SIGNS MEDICATIONS Unknown Medications RESULTS No Results PROCEDURES No Known procedures INSTRUCTIONS MEDICATIONS ADMINISTERED No Known Medications
--- OUTSIDE RECORDS SUMMARY | 2020-03-09 14:15 | XMS REPORT | Continuity of Care Document ---
Author Organization Unknown Address Unknown Phone Unavailable Allergies Active Description Code Type Severity Reaction Onset Reported/Identified Relationship to Patient Clinical Status Yes No Known Drug Allergies [id number] Drug Allergy Unknown N/A 12/14/2013 Medications There is no data. Problems Date Dx Coded Attending Type Code Diagnosis Diagnosed By 01/03/2013 388.30 TIN NITUS UNSPECIFIED 01/03/2013 461.9 SINU SITIS ACUTE 01/03/2013 388.30 TIN NITUS UNSPECIFIED 01/03/2013 461.9 SINU SITIS ACUTE 01/03/2013 EL HOSKINS DO 388.30 TINNITUS UNSPECIFIED 01/03/2013 EL HOSKINS DO 461.9 SINUSITIS ACUTE 01/16/2013 380.4 CERU MEN IMPACTION 01/16/2013 EL HOSKINS DO 380.4 CERUMEN IMPACTION 12/14/2013 ABIODUN JAIMES, JANIA Mcguire Ot 599 .0 URIN TRACT INFECTION NOS 12/14/2013 JANIA RASCON MD Ot 780 .4 DIZZINESS AND GIDDINESS 05/01/2015 DAVIDE NEVAREZP Ot V76.12 05/24/2015 DAVIDE NEVAREZP Ot V76.12 05/24/2015 YOANNA SMITH DO Ot V76.12 06/18/2015 LUIS KIRAN YOANNA Ot V76.12 05/22/2016 DAVIDE NEVAREZ NEONATAL NURSE Ot V76.12 OTH SCREEN MAMMO-MALIGN NEOPLASM OF SUKUMAR 05/22/2016 VAISHNAVI SMITH DOI Ot V76.12 OTH SCREEN MAMMO-MALIGN NEOPLASM OF SUKUMAR 05/25/2016 YOANNA SMITH DO Ot Z12.31 ENCNTR SCREEN MAMMOGRAM FOR MALIGNANT NE 05/25/2016 YOANNA SMITH DO Ot Z12.31 ENCNTR SCREEN MAMMOGRAM FOR MALIGNANT NE 06/25/2016 YOANNA SMITH DO Ot Z12.31 ENCNTR SCREEN MAMMOGRAM FOR MALIGNANT NE 05/05/2017 DAVIDE NEVAREZ NEONATAL NURSE Ot V76.12 OTH SCREEN MAMMO-MALIGN NEOPLASM OF SUKUMAR 05/05/2017 LUIS KIRAN YOANNA Ot V76.12 OTH SCREEN MAMMO-MALIGN NEOPLASM OF SUKUMAR 05/05/2017 LUIS KIRAN YOANNA Ot Z12.31 ENCNTR SCREEN MAMMOGRAM FOR MALIGNANT NE 05/24/2017 SMITH DO YOANNA Ot Z12.31 ENCNTR SCREEN MAMMOGRAM FOR MALIGNANT NE 05/11/2018 Ot I10 ESSENT IAL (PRIMARY) HYPERTENSION 05/11/2018 Ot K35.80 UNS PECIFIED ACUTE APPENDICITIS 05/27/2018 Ot I10 ESSENT IAL (PRIMARY) HYPERTENSION 05/27/2018 Ot K35.80 UNS PECIFIED ACUTE APPENDICITIS 06/02/2018 AUREA BLAKELY DO Ot K76. 0 FATTY (CHANGE OF) LIVER, NOT ELSEWHERE C 06/03/2018 DAVIDE NEVAREZ [facility] Ot V76.12 OTH SCREEN MAMMO-MALIGN NEOPLASM OF SUKUMAR 06/03/2018 LUIS KIRAN YOANNA Ot V76.12 OTH SCREEN MAMMO-MALIGN NEOPLASM OF SUKUMAR 06/03/2018 LUIS KIRAN YOANNA Ot Z12.31 ENCNTR SCREEN MAMMOGRAM FOR MALIGNANT NE 06/03/2018 SMITHKAMALJIT KIRAN YOANNA Ot Z12.31 ENCNTR SCREEN MAMMOGRAM FOR MALIGNANT NE 06/03/2018 Ot D25.9 LEIO MYOMA OF UTERUS, UNSPECIFIED 06/03/2018 Ot K76.0 FATT Y (CHANGE OF) LIVER, NOT ELSEWHERE C 06/03/2018 AUREA BLAKELY DO Ot K76. 0 FATTY (CHANGE OF) LIVER, NOT ELSEWHERE C 06/03/2018 Ot D25.9 LEIO MYOMA OF UTERUS, UNSPECIFIED 06/03/2018 Ot K76.0 FATT Y (CHANGE OF) LIVER, NOT ELSEWHERE C 06/06/2018 AUREA BLAKELY DO Ot K76. 89 OTHER SPECIFIED DISEASES OF LIVER 06/16/2018 AUREA BLAKELY DO Ot K76. 0 FATTY (CHANGE OF) LIVER, NOT ELSEWHERE C 06/16/2018 AUREA BLAKELY DO Ot K76. 89 OTHER SPECIFIED DISEASES OF LIVER 07/04/2018 LUIS KIRAN YOANNA Ot Z12.31 ENCNTR SCREEN MAMMOGRAM FOR MALIGNANT NE 07/14/2018 YOANNA SMITH DO Ot Z12.31 ENCNTR SCREEN MAMMOGRAM FOR MALIGNANT NE 06/14/2019 SALO HATCH MD Ot G47.10 HYPERSOMNIA, UNSPECIFIED 06/14/2019 SALO HATCH MD Ot G47.33 OBSTRUCTIVE SLEEP APNEA (ADULT) (PEDIATR 06/19/2019 SALO HATCH MD Ot G47.10 HYPERSOMNIA, UNSPECIFIED 06/19/2019 SALO HATCH MD Ot G47.33 OBSTRUCTIVE SLEEP APNEA (ADULT) (PEDIATR 10/03/2019 VAISHNAVI SMITH DOI Ot Z12.31 ENCNTR SCREEN MAMMOGRAM FOR MALIGNANT NE 11/07/2019 YOANNA SMITH DO Ot Z12.31 ENCNTR SCREEN MAMMOGRAM FOR MALIGNANT NE Procedures There is no data. Results There is no data. Encounters ACCT No. Visit Date/Time Discharge Status Pt. Type Provider Facility Loc./Unit Complaint [id number] 01/17/2014 08:33:00 01/17/2014 23:59: 59 CLS Outpatient LE HOSKINS DO [id number] 01/03/2013 10:24:00 01/03/2013 23:59: 59 CLS Outpatient [id number] 01/16/2013 13:12:00 Document Registration [id number] 10/02/2019 09:25:00 23:59:59 CLS Outpatient YOANNA SMITH DO [facility] RAD SCREENING [id number] 06/14/2019 13:29:00 019 14:05:00 DIS Outpatient SALO HATCH MD [facility] SLEEP SANTIAGO G47.33 [id number] 12/05/2018 09:30:00 019 23:59:59 CLS Preadmit AUREA BLAKELY DO [facility] RAD LIVER MASS,RIGHT LOBE [id number] 07/01/2018 07:49:00 23:59:59 CLS Outpatient YOANNA SMITH DO [facility] RAD SCREENING [id number] 06/03/2018 09:12:00 23:59:59 CLS Outpatient AUREA BLAKELY DO [facility] RAD HYPERDENSITY RIGHT LOBE LIVER [id number] 06/01/2018 07:09:00 018 23:59:59 CLS Outpatient ZORA AUREA [facility] RAD HYPERDENSITY RIGHT LOBE LIVER [id number] 05/07/2017 13:26:00 017 23:59:59 CLS Outpatient SMITH DO, YOANNA [facility] RAD SCREENING [id number] 05/22/2016 13:09:00 016 23:59:59 CLS Outpatient SMITH DO, YOANNA [facility] RAD SCREENING [id number] 05/17/2015 10:56:00 015 23:59:59 CLS Outpatient SMITH DO, YOANNA [facility] RAD SCREENING [id number] 05/11/2014 11:17:00 014 23:59:59 CLS Outpatient DAVIDE NEVAREZ [facility] RAD SCREENING [id number] 12/14/2013 09:37:00 014 12:00:00 DIS Emergency ABIODUN JAIMES, JANIA Mcguire [facility] ER HIGH BLOOD PRESS[facility] [id number] 05/10/2018 12:59:00 Document Registration [id number] 05/10/2018 10:50:00 Document Registration [id number] 05/01/2015 09:17:00 Document Registration
--- OUTSIDE RECORDS SUMMARY | 2020-03-09 14:15 | XMS REPORT ---
Author Author Sumi Borges Doctor Organization [facility] Address Unknown Phone Unavailable Care Team Providers Care Port Cdl A Driver Name Role Phone Migration, Doctor Unavailable Unavailable PROBLEMS Type Condition ICD9-CM Code [id number] Code Onset Dates Condition S tatus SNOMED Code Problem Unspecified tinnitus 388.30 Active 09099813 Problem Impacted cerumen 380.4 Active 180 84276 Problem Acute sinusitis, unspecified 461.9 A ctive 03718008 ALLERGIES No Information ENCOUNTERS Encounter Location Date Diagnosis [facility] [address] [id number] [address] [place] [phone] Dec, [facility] [address] [id number] [address] [place] [id number] Dec, [facility] [address] [id number] [address] [place] [phone] Dec, [facility] [address] [id number] [address] [place] [phone] Dec, [facility] [address] [id number] [address] [place] [phone] Dec, [facility] [address] [id number] [address] [place] [phone] Dec, [facility] [address] [id number] [address] [place] [phone] Dec, [facility] [address] [id number] [address] [place] [phone] Dec, [facility] [address] [id number] [address] [place] [phone] Dec, [facility] [address] [id number] [address] [place] [phone] Dec, [facility] [address] [id number] [address] [place] [phone] Dec, IMMUNIZATIONS No Known Immunizations SOCIAL HISTORY Never Assessed REASON FOR VISIT EMR-[facility] [place]AN OF CARE VITAL SIGNS MEDICATIONS Unknown Medications RESULTS No Results PROCEDURES No Known procedures INSTRUCTIONS MEDICATIONS ADMINISTERED No Known Medications
--- OUTSIDE RECORDS SUMMARY | 2020-03-09 14:15 | XMS REPORT ---
Author Author Sumi Borges Doctor Organization [facility] Address Unknown Phone Unavailable Care Team Providers Care Windows Desktop Support Name Role Phone Migration, Doctor Unavailable Unavailable PROBLEMS Type Condition ICD9-CM Code [id number] Code Onset Dates Condition S tatus SNOMED Code Problem Unspecified tinnitus 388.30 Active 14749260 Problem Impacted cerumen 380.4 Active 180 42168 Problem Acute sinusitis, unspecified 461.9 A ctive [id number] ALLERGIES No Information ENCOUNTERS Encounter Location Date Diagnosis [facility] [place] [address] [id number] [address] [place] [phone] Dec, [facility] [place] [address] [id number] [address] [place] [phone] Dec, [facility] [place] [address] [id number] [address] [place] [phone] Dec, [facility] [place] [address] [id number] [address] [place] [phone] Dec, [facility] [place] [address] [id number] [address] [place] [phone] Dec, [facility] [place] [address] [id number] [address] [place] [phone] Dec, [facility] [place] [address] [id number] [address] [place] [phone] Dec, [facility] [place] [address] [id number] [address] [place] [phone] Dec, [facility] [place] [address] [id number] [address] [place] [phone] Dec, [facility] [place] [address] [id number] [address] [place] [phone] Dec, [facility] [place] [address] [id number] [address] [place] [phone] Dec, IMMUNIZATIONS No Known Immunizations SOCIAL HISTORY Never Assessed REASON FOR VISIT EMR-[facility] PLAN OF CARE VITAL SIGNS MEDICATIONS Medication Instructions Dosage Frequency Start Date End Date Duration S tatus Augmentin 875-125 mg 1 tablet by Oral route 2 times pe r day for 10 day(s) Dec, Active Metoprolol Tartrate 50 mg Dec, Active levothyroxine 25 mcg take 1 tablet (25 mcg) by oral ro rima once daily Dec, Active Tessalon Perles 100 mg 1 capsule by Oral route 3 times per day PRN Dec, Active Azithromycin 250 mg 2 Tablet by Oral rou te on day 1 then take 1 daily for 5 days Dec, Active Aspirin Low Dose 81 mg take 1 tablet (81 mg) by oral r oute once daily Dec, Active A/B Otic 5.4-1.4 % 2-4 Drops into affected ear(s) 4 t imes per day PRN Dec, Active RESULTS No Results PROCEDURES No Known procedures INSTRUCTIONS MEDICATIONS ADMINISTERED No Known Medications
--- OUTSIDE RECORDS SUMMARY | 2020-03-09 14:15 | XMS REPORT ---
Author Author Sumi Borges Doctor Organization [facility] Address Unknown Phone Unavailable Care Team Providers Care Auto Body Estimator Name Role Phone Migration, Doctor Unavailable Unavailable PROBLEMS Type Condition ICD9-CM Code [id number] Code Onset Dates Condition S tatus SNOMED Code Problem Unspecified tinnitus 388.30 Active 10506851 Problem Impacted cerumen 380.4 Active 180 04820 Problem Acute sinusitis, unspecified 461.9 A ctive 89222181 ALLERGIES No Information ENCOUNTERS Encounter Location Date Diagnosis [facility] [address] [id number] [address] [place] [phone] Dec, [facility] [address] [id number] [address] [place] [phone] Dec, [facility] [address] [id number] [address] [place] [phone] Dec, [facility] [address] [id number] [address] [place] [phone] Dec, [facility] [address] [id number] [address] [place] [phone] Dec, [facility] [address] [id number] [address] [place] [phone] Dec, [facility] [address] [id number] [address] [place] [phone] Dec, [facility] [address] [id number] [address] [place] [phone] Dec, [facility] [address] [id number] [address] [place] [phone] Dec, [facility] [address] [id number] [address] [place] [phone] Dec, [facility] [address] [id number] [address] [place] [phone] Dec, IMMUNIZATIONS No Known Immunizations SOCIAL HISTORY Never Assessed REASON FOR VISIT EMR-[facility] [place] [place] PLAN OF CARE VITAL SIGNS MEDICATIONS Unknown Medications RESULTS No Results PROCEDURES No Known procedures INSTRUCTIONS MEDICATIONS ADMINISTERED No Known Medications
--- OUTSIDE RECORDS SUMMARY | 2020-03-09 14:15 | XMS REPORT ---
Author Author Sumi Borges Doctor Organization [facility] Address Unknown Phone Unavailable Care Team Providers Care Senior Clinical Data Manager Name Role Phone Migration, Doctor Unavailable Unavailable PROBLEMS Type Condition ICD9-CM Code DOB01-GB Code Onset Dates Condition S tatus SNOMED Code Problem Unspecified tinnitus 388.30 Active 25809607 Problem Impacted cerumen 380.4 Active 180 02500 Problem Acute sinusitis, unspecified 461.9 A ctive [id number] ALLERGIES No Information ENCOUNTERS Encounter Location Date Diagnosis [facility] [address] [id number] [address] [place] [phone] Dec, [facility] [address] [id number] [address] [place] [phone] Dec, [facility] [address] [id number] [address] [place] [phone] Dec, [facility] [address] [id number] [address] [place] [phone] Dec, [facility] [address] [id number] [address] [place] [phone] Dec, [facility] [address] [id number] [address] [place] [phone] Dec, [facility] [address] [id number] [address] [place] [phone] Dec, [facility] [address] [id number] [address] [place] [phone] Dec, [facility] [address] [id number] [address] [place] [phone] Dec, [facility] [address] [id number] [address] [place] [phone] Dec, [facility] [address] [id number] [address] [place] [phone] Dec, IMMUNIZATIONS No Known Immunizations SOCIAL HISTORY Never Assessed REASON FOR VISIT EMR-[facility] [place], [place] PLAN OF CARE VITAL SIGNS MEDICATIONS Unknown Medications RESULTS No Results PROCEDURES No Known procedures INSTRUCTIONS MEDICATIONS ADMINISTERED No Known Medications
== END 2020-03-09 14:11 | disposition left against medical advice (07) ==
LOC: EDUNIT# 14:06 → ER 14:07
DX: S61.412A Laceration without foreign body of left hand, initial encounter (principal); X58.XXXA Exposure to other specified factors, initial encounter

== ENCOUNTER → 2020-05-10 | Outpatient (CLI) | payer BC ==
--- NOTE | 2020-05-10 12:58 | Diagnostic Imaging Report ---
Exam: Ultrasound left upper extremity. Date: May 10, 2020. Indication: 59-year-old female, palpable lump of the left chest wall in the region of the clavicle. Comparison: None. Findings: Targeted ultrasound at the area of focal patient concern was performed. There is an oval hypoechoic masslike area in the region of focal patient concern measuring 1.5 x 0.5 x 1.8 cm in size. There is no well demonstrated internal blood flow. Impression: 1. Nonspecific hypoechoic masslike area at the area of focal patient concern measuring 1.5 x 0.5 x 1.8 cm in size. Recommend targeted small field of view CT evaluation without and with intravenous contrast for further assessment. Dictated by: Dictated on workstation # [id number]
== END ==
LOC: RAD 12:12
PROVIDERS: ATTEND Internal Medicine
DX: R22.2 Localized swelling, mass and lump, trunk (principal)
CPT/HCPCS: 76881

== ENCOUNTER → 2020-05-17 | Outpatient (CLI) | payer BC ==
[~2020-05-17] MED LIST changes: +HOLD METFORMIN - RECEIVED CONTRAST 20 ML VIAL IV SCH; +IOHEXOL 350 MG/ML 100 ML (OMNIPAQUE 350) VIAL IV ONE; +NS 100 ML (IVPB) BAG IV ONE
--- NOTE | 2020-05-17 08:39 | Diagnostic Imaging Report ---
PROCEDURE: CT chest with and without contrast. TECHNIQUE: Multiple contiguous axial images were obtained through the chest before and after administration of intravenous contrast. Auto Exposure Controls were utilized during the CT exam to meet ALARA standards for radiation dose reduction. INDICATION: Left-sided chest mass. There are no prior CT chest examinations available for comparison. Reportedly, the patient has a palpable abnormality along the left chest. A marker was placed over the area of concern. The marker is visible in the left supraclavicular region. There is no sign of a discrete solid or cystic mass in this area. If further evaluation of this region is desired, ultrasound would be recommended. The heart size is within normal limits. There are no coronary calcifications identified. The aorta is not abnormally dilated and there is no sign of dissection. There is no defect within the pulmonary arteries to indicate a pulmonary embolus. The lungs are clear. There is no evidence for failure, pneumonia or for pleural effusion. There is no parenchymal lung mass identified either. There is no mediastinal or hilar adenopathy. The thyroid gland was partially obscured by streak artifact. There is no definite abnormality of the thyroid gland noted. There is no obvious breast mass. The sections through the upper abdomen failed to show any sign of an acute abnormality. The suspected hemangioma in the right lobe of liver seen on the prior CT abdomen/pelvis exam of 05/10/2018 is again evident and no different. The bone windows are unremarkable for fracture or for destructive lesion. IMPRESSION: 1. There is no discrete solid or cystic mass in the area of the patient's palpable abnormality in the left supraclavicular region. Additional considerations as above. 2. There is no acute cardiopulmonary abnormality noted. 3. The suspected hemangioma in the right lobe of the liver seen on the previous CT abdomen/pelvis exam is again evident and no different. Dictated by: Dictated on workstation # [id number]
== END ==
LOC: RAD 07:45
PROVIDERS: ATTEND Internal Medicine
DX: R22.2 Localized swelling, mass and lump, trunk (principal)
CPT/HCPCS: 71270

== ENCOUNTER → 2021-01-31 | Outpatient (CLI) | payer BC ==
[~2021-01-31] MED LIST changes: +AMLO-250 PO; -AMLO5TAB9 PO; -HOLD METFORMIN - RECEIVED CONTRAST 20 ML VIAL IV SCH; -IOHEXOL 350 MG/ML 100 ML (OMNIPAQUE 350) VIAL IV ONE; -NS 100 ML (IVPB) BAG IV ONE
--- NOTE | 2021-01-31 18:36 | Diagnostic Imaging Report ---
INDICATION: Routine screening. COMPARISON is made with prior mammograms from 10/02/2019 and 07/01/2018. 2-D and 3-D bilateral screening mammography was performed with CAD. Both breasts are heterogeneously dense, limiting the sensitivity of mammography. No mass or malignant appearing microcalcifications are seen. There are benign calcifications bilaterally. Axillae are unremarkable. IMPRESSION: BI-RADS Category 2 No mammographic features suspicious for malignancy are identified. ACR BI-RADS Category 2: Benign findings. Result letter will be mailed to the patient. Note: At least 10% of breast cancer is not imaged by mammography. Dictated by: Dictated on workstation # [id number]
== END ==
LOC: RAD 10:55
PROVIDERS: ATTEND Internal Medicine
DX: Z12.31 Encounter for screening mammogram for malignant neoplasm of breast (principal)
CPT/HCPCS: 77063; 77067

== ENCOUNTER → 2022-03-31 | Outpatient (CLI) | payer BC ==
--- NOTE | 2022-03-31 12:35 | Diagnostic Imaging Report ---
INDICATION: Postmenopausal screening COMPARISON: None FINDINGS: AP Spine L1-L4: [BMD (g/cm2): 1.016] [T-Score: -1.5] [Z-Score: -1.1] [BMD Previous: na] [BMD % Change: na] LT Hip Neck: [BMD (g/cm2): 1.009] [T-Score: -0.2] [Z-Score: 0.6] LT Hip Total: [BMD (g/cm2):1.120] [T-Score:0.9] [Z-Score: 1.3] [BMD Previous: na] [BMD % Change: na] RT Hip Neck: [BMD (g/cm2):1.078] [T-Score:0.3] [Z-Score:1.0] RT Hip Total: [BMD (g/cm2):1.136] [T-score:1.0] [Z-Score:1.4] [BMD Previous:na] [BMD % Change:na] *Indicates significant change from prior examination based on 95% confidence level. World Health Organization criteria for BMD interpretation classify patients as Normal (T-score at or above -1.0), Osteopenic (T-score between -1.0 and -2.5) or Osteoporotic (T-score at or below -2.5). LIMITATIONS AND MODIFICATION: None. FRACTURE RISK (FRAX SCORE): The ten year probability of (%): Major Osteoporotic Fracture: [na] Hip Fracture: [na] IMPRESSION: 1. Osteopenia (Low bone mass). 2. See below National Osteoporosis Foundation guidelines on when to potentially initiate pharmacologic therapy. Based on the National Osteoporosis Foundation Guidelines, pharmacologic treatment should be initiated in any of the following, unless clinical conditions suggest otherwise: * Any patient with prior fragility fracture of the hip or vertebrae. A spine fracture indicates 5X risk for subsequent spine fracture and 2X risk for subsequent hip fracture. * Osteoporosis (T-score <-2.5). * Postmenopausal women and men age 50 and older with low bone mass/osteopenia (T-score between -1.0 and -2.5) by DXA and 10-year major osteoporotic fracture greater than 20% or a 10-year probability of hip fracture greater than 3%. These fracture risks are supplied above in the FRAX score, if applicable. * Clinician judgement and/or patient preferences may indicate treatment for people with 10-year fracture probabilities above or below these levels. Dictated by: Dictated on workstation # [id number]
--- NOTE | 2022-03-31 12:56 | Diagnostic Imaging Report ---
INDICATION: Routine screening. COMPARISON: 01/31/2021 and 10/02/2019. TECHNIQUE: 2D and 3D bilateral screening mammography was performed with CAD. FINDINGS: Both breasts are heterogeneously dense, limiting the sensitivity of mammography. Benign calcifications in both breasts are again noted. No mass or malignant-appearing microcalcifications are seen. The axillae are unremarkable. IMPRESSION: No mammographic features suspicious for malignancy are identified. ACR BI-RADS Category 2: Benign findings. Result letter will be mailed to the patient. Note: At least 10% of breast cancer is not imaged by mammography. Dictated by: Dictated on workstation # [id number]
== END ==
LOC: RAD 08:45
PROVIDERS: ATTEND Internal Medicine
DX: Z12.31 Encounter for screening mammogram for malignant neoplasm of breast (principal); Z13.820 Encounter for screening for osteoporosis; M81.0 Age-related osteoporosis without current pathological fracture; M85.88 Other specified disorders of bone density and structure, other site; Z78.0 Asymptomatic menopausal state
CPT/HCPCS: 77063; 77067; 77080

== ENCOUNTER → 2023-04-30 | Outpatient (CLI) | payer BC ==
--- NOTE | 2023-04-30 16:28 | Diagnostic Imaging Report ---
Indication: Routine screening. Comparison is made with prior mammograms 03/31/2022 and 01/31/2021. 2-D and 3-D bilateral screening mammography was performed with CAD. Both breasts are heterogeneously dense, limiting the sensitivity of mammography. There are benign calcifications bilaterally. No dominant mass or malignant-appearing microcalcifications are seen. Axillae are unremarkable. IMPRESSION: BI-RADS Category 2 No mammographic features suspicious for malignancy are identified. ACR BI-RADS Category 2: Benign findings. Result letter will be mailed to the patient. Note: At least 10% of breast cancer is not imaged by mammography. Dictated by: Dictated on workstation # [id number]
== END ==
LOC: RAD 14:39
PROVIDERS: ATTEND Internal Medicine
DX: Z12.31 Encounter for screening mammogram for malignant neoplasm of breast (principal)
CPT/HCPCS: 77063; 77067